=== PATIENT | female | born 1990 | race Caucasian/White ===

== ENCOUNTER 2016-08-19 08:00 | Emergency (ER) | payer SELFPAY ==
[2016-08-19 09:04] LABS: URINE BILIRUBIN NEGATIVE (NEGATIVE); URINE BLOOD 4+ (NEGATIVE); URINE GLUCOSE (UA) NEGATIVE (NEGATIVE); URINE LEUKOCYTE ESTERASE TRACE (NEGATIVE); URINE NITRITE NEGATIVE (NEGATIVE); URINE PROTEIN 1+ (NEGATIVE); URINE UROBILINOGEN NORMAL (0-1 mg/dl)
[2016-08-19 09:06] LABS: HCG,QUALITATIVE URINE NEGATIVE
[2016-08-19 09:11] LABS: URINE APPEARANCE HAZY; URINE COLOR YELLOW
[2016-08-19 09:13] LABS: URINE EPITHELIAL CELLS 0-1 /hpf; URINE WBC 0-1 /hpf
[2016-08-19 09:14] LABS: URINE BACTERIA 1+
[2016-08-20 15:36] LABS: CHLAMYDIA BD Negative (Negative); N.GONORRHOEAE BD Negative (Negative); SOURCE Urine (())
== END 2016-08-19 09:53 | disposition home or self-care (01) ==
LOC: ED 08:00
DX: N92.0 Excessive and frequent menstruation with regular cycle (principal); H65.93 Unspecified nonsuppurative otitis media, bilateral